=== PATIENT | female | born 1970 | race Caucasian/White ===

== ENCOUNTER 2016-09-20 15:33 | Emergency (ER) | payer BC ==
[~2016-09-20] VITALS: Ht 175.3 cm; Wt 95.5 kg
[2016-09-20 15:36] VITALS: TEMP 98.8
[2016-09-20] MEDS ORDERED: LO LOESTRIN FE1 TAB PO (15:55)
[2016-09-20] MEDS ORDERED: PRINIVIL5 MG PO (15:55)
[2016-09-20] MEDS ORDERED: PROTONIX 40MG T40 MG PO (15:56)
[2016-09-20] MEDS ORDERED: K-DUR20 MEQ PO (15:56)
[2016-09-20] MEDS ORDERED: SINGULAIR 110 MG/TAB PO (15:56)
[2016-09-20] MEDS ORDERED: HCTZ 25MG TAB25 MG PO (15:56)
[2016-09-20] MEDS ORDERED: CONTRAVE1 TER PO (15:57)
[2016-09-20 16:37] LABS: BASO # 0.1 (0.0-0.2); BASO % 0.7 % (0.0-2.0); EOS # 0.5 (0.0-0.7); EOS % 2.6 % (0-4.0); GRAN # 13.8 (1.4-6.5); GRAN % 72.8 % (42.2-75.2); HEMATOCRIT 42.7 % (37.0-47.0); HEMOGLOBIN 14.6 g/dl (12.5-16.0); LYMPH # 3.2 (1.2-3.4); LYMPH % 16.6 % (20.0-51.0); MEAN CELL VOLUME 86 fl (80.0-100.0); MEAN CORPUSCULAR HEMOGLOBIN 30 pg (27.0-31.0); MEAN CORPUSCULAR HGB CONC 34 g/dl (33.0-37.0); MEAN PLATELET VOLUME 10.7 fl (7.4-10.4); MONO # 1.3 (0.1-0.6); MONO % 6.8 % (1.7-9.3); PLATELET COUNT 284 K/mm3 (130-400); RED BLOOD COUNT 4.95 M/mm3 (4.10-5.30)
[2016-09-20 16:46] LABS: ADJUSTED CALCIUM 9.3 mg/dL (8.4-10.2); ALANINE AMINOTRANSFERASE 27 U/L (9-52); ALBUMIN 4.1 gm/dL (3.5-5.0); ALKALINE PHOSPHATASE 49 U/L (50-136); ANION GAP 12 mmol/L (7-16); BILIRUBIN,TOTAL 0.9 mg/dL (0.0-1.0); BLOOD UREA NITROGEN 11 mg/dL (7-17); CALCIUM 9.4 mg/dL (8.4-10.2); CARBON DIOXIDE 24 mmol/L (22-30); CHLORIDE 102 mmol/L (98-107); CREATININE, serum 0.77 mg/dL (0.52-1.25); GLUCOSE 82 mg/dL (74-106); LIPASE 407 U/L (23-300); POTASSIUM 3.5 mmol/L (3.4-5.0); SODIUM 138 mmol/L (137-145)
[2016-09-20 16:59] LABS: TROPONIN-I < 0.012 ng/mL (0.000-0.034)
[2016-09-20] MEDS ORDERED: ZOFRAN ODT4 MG PO (19:01)
[2016-09-20] MEDS ORDERED: PERCOCET 325 MG1 TA2 PO (19:01)
[2016-09-20 19:28] VITALS: BP 139/73; PULSE 74
== END 2016-09-20 19:37 | disposition home or self-care (01) ==
LOC: COL.ER 15:33
PROVIDERS: Physician Assistant
DX: K85.90 Acute pancreatitis without necrosis or infection, unspecified (principal); I10 Essential (primary) hypertension; F17.210 Nicotine dependence, cigarettes, uncomplicated; K21.9 Gastro-esophageal reflux disease without esophagitis
CPT/HCPCS: J2405; J2765; J7030; Q9967